=== PATIENT | male | born 1995 | race Caucasian/White ===

== ENCOUNTER 2019-04-28 14:26 | Outpatient (CLI) | payer OTHER ==
[2019-04-28 15:13] VITALS: BP 115/70
--- NOTE | 2019-04-28 15:13 | CONSULTATION NOTE ---
Information from patient questionnaire entered by Helene Rodriguez. I have reviewed and concur with the information entered by Helene Rodriguez. This document represents the service I personally performed and the decisions made by me, Doris Villela MD, [facility]. - History of Present Illness Chief Complaint: Snoring I had the pleasure of seeing MIKY PARMAR today regarding the possibility of him having a sleep disorder. His current complaints are loud snore, non- restorative sleep, and daytime sleepiness. The said he had a home sleep apnea test when he was 17 years old and was given a CPAP to use and found it beneficial. At that time he was working for a [employer] and the diagnosis was not official. The patient tells me that he normally goes to bed around 10:00 pm, and it takes him approximately 5-15 minutes to fall asleep. He has been told that he snores loudly and irregularly at night. He has not been observed to stop breathing in his sleep. His can still sleep in the same bed. He can recall waking up on the average of 4 times during the night. Most of the time he wakes up because of having to use the restroom and tossing and turning. He has never woken up from his own snore. There is a lot of tossing and turning in his sleep. Generally he can recall having dreams. There is somniloquy (sleep talking) but no somnambulism (sleep walking). He usually wakes up at 7:00- 7:30am and does not feel refreshed. He usually does not have a morning headache. During the day he complains of feeling sleepy and fatigued. He has never fallen asleep while driving nor has any accident due to sleepiness. He usually does not take naps during the day. If he naps, upon falling asleep during the day he denies having vivid dreams. He has experienced sleep paralysis. No symptoms of restless leg syndrome. He denies having impaired concentration during the day. Bernard Sleepiness Scale Score: 10 - Allergies/Home Medications Allergies and home medications reviewed: Yes - Social History The patient's occupation is a [employer]. Patient is and lives in [place]. Smoked in the past 12 months: No Alcohol use: Yes Amount and frequency: 1-2 drinks/week Caffeine use: Yes Amount and frequency: 1-2 drinks/week - Family History Family history of sleep disordered breathing: Yes Family Hx Sleep Apnea: Mother: Snoring (uncle), Grandparent: Snoring, Other: Sleep apnea - Treated - Review of Systems Cardiovascular: denies: high blood pressure, palpitations, chest pain, irregular heart rate or pulse, leg or foot swelling, have to sleep sitting up, other: Respiratory: denies: shortness of breath, wheeze, sputum production, chronic cough, other: Gastrointestinal: denies: heartburn, difficulty swallowing, nausea, vomitting, diarrhea, abdominal pain, other: Urinary: denies: incontinence, frequency, urgency, impotence, other: Neurological: denies: headaches, seizure, head trauma, disorientation, speech dysfunction, gait or balance problems, fainting or unconsciousness, other: Psychiatric: denies: Attention Deficit Hyperactivity, anxiety, depression, mood disorder, claustrophobia, other: Ear/Nose/Throat: reports: wisdom teeth removed Endocrine: denies: thyroid disease, history of goiter, sluggishness, too hot or cold, excessive thirst, increased appetite, increased urination, unexplained weakness, other: Musculoskeletal: denies: joint pain, neck pain, back pain, joint swelling, muscle pain or cramping, mobility problems, other: Immunologic: denies: sneezing, rash, itching, allergies to food or environment, other: - Physical Examination Vital signs obtained and documented by: Dr. Villela Blood Pressure: 115/70 Cuff size: long Heart Rate: 78 O2 Saturation: 98 Height: 5 ft 10 in Weight (kg): 115.747 kg Body Mass Index: 36.6 BMI Classification: Class 2 Neck circumference: 18 Mood/affect: normal HEENT: No craniofacial malformation Nostrils: patent to airflow Turbinates: normal Septum: midline Mouth and throat: narrow oropharynx Soft palate: long Hard palate: normal Uvula: normal Tongue: normal in size Tonsils: small Chin and jaw: normal size and position Neck: normal w/o lymphadenopathy or thyromegaly Heart: regular rate and rhythm Lungs: clear bilaterally Abdomen: soft Extremities: no edema or clubbing Neurologic: intact - Impression 1. Suspected Obstructive Sleep Apnea-Hypopnea Syndrome, as suggested by a history of loud and irregular snoring, frequent awakening during the night, unrefreshed sleep, and excessive daytime sleepiness. Narrow oropharynx and obesity are common predisposing factors for obstructive sleep apnea-hypopnea syndrome. I recommend proceeding to polysomnography to confirm the diagnosis and to assess severity. If the patient has significant sleep disordered breathing, a manual CPAP titration study will also be performed to find the optimal treatment pressure. I informed the patient of what the sleep studies involve and after some discussion, obtained agreement to proceed. The pathophysiology of obstructive sleep apnea-hypopnea syndrome was discussed with the patient and health risks of cardiovascular and cerebrovascular disease if not treated. - Plan Schedule polysomnography +- manual CPAP titration study. Avoid long distance driving or driving when feeling sleepy. Avoid alcohol, sedative and muscle relaxant around bedtime. Attempt to lose weight. Review instructions provided by trained office staff on how to prepare for the sleep study. Return for follow-up after sleep study completed. I spent 100% of this 15 minute visit face to face with the patient with greater than 50% of this was spent time counseling the patient and coordination of care.
== END 2019-04-28 14:27 | disposition home or self-care (01) ==
LOC: SC 14:26
PROVIDERS: ATTEND Internal Medicine Pulmonary Disease
DX: R06.83 Snoring (principal); G47.8 Other sleep disorders; G47.10 Hypersomnia, unspecified
CPT/HCPCS: 99203; 99212

== ENCOUNTER 2019-05-16 19:21 | Outpatient (CLI) | payer OTHER | END 2019-05-16 19:22 | disposition home or self-care (01) | LOC: SC 19:21 | PROVIDERS: ATTEND Internal Medicine Pulmonary Disease | DX: G47.61 Periodic limb movement disorder (principal) | CPT/HCPCS: 95810 ==

== ENCOUNTER 2019-06-11 13:03 | Outpatient (CLI) | payer OTHER ==
[2019-06-11 14:12] VITALS: BP 130/78
--- NOTE | 2019-06-11 14:12 | SLEEP CARE CONSULTATION ---
Information from patient questionnaire entered by Elyssa Rodriguez. I have reviewed and concur with the information entered by Elyssa Rodriguez. This document represents the service I personally performed and the decisions made by me, Di Trotter RN, MSN, [employer]. History of Present Illness Initial [place] Sleepiness Scale score: 10 Current [place] Sleepiness Scale score: 9 Additional HPI information: MIKY PARMAR returns for follow up of the recently performed polysomnography and informed of findings. I explained the pathophysiology behind obstructive sleep apnea. Patient does not have sleep apnea and was advised how weight gain could increase the risk of developing sleep apnea in the future. I strongly encouraged the patient to lose weight as his BMI is 36, class 2 obesity Patient has snoring and PLMs. Snoring can be reduced by weight loss. Patient states he has always snored even at lower weight No nasal congestion or difficulty breathing through his nose. Snoring can also be treated with an oral appliance from a dentist. Advised to check insurance coverage. A list of accredited dentists can be given if interested or he can check with [facility]. In addition, an ENT evaluation can be do to see if other treatment is indicated. Patient is not currently interested in oral appliance or ENT evaluation. Patient counseled not drink alcohol less than 4 hours before bedtime as it can increase snoring and apnea. Patient does not drink alcohol. Patient was cautioned about risks of drowsy driving until sleepiness symptoms resolve. Patient denies drowsy driving. [facility] patient education on snoring and sleep apnea given and reviewed. Sleep Study - Polysomnography Polysomnography findings: The quality of the study is good. The patient had slightly reduced sleep effi ciency due to a prolonged awakening in the middle of the night. The sleep architecture was normal.. Respiratory monitoring showed no significant sleep disordered breathing (AHI = 0.7) hypoxia (jayesh oxygen saturation of 93%). The patient slept adequately in supine position (supine AHI = 0.5; non-supine = 0.83). Snore was light to loud in intensity. There was mild periodic leg movement of sleep not associated with sleep fragmentation. Cardiac rhythm was normal sinus rhythm without significant arrhythmia. No abnormal behavior (parasomnia) observed during the night. Allergies and Home Medications Known drug allergies: No Home medication list reviewed: Yes (none) Review of Systems Review of systems same as previous: Yes Physical Exam Blood Pressure: 130/78 Cuff size: long Heart Rate: 68 O2 Saturation: 98 Height: 5 ft 10 in Weight (kg): 254 lb 6.4 oz Body Mass Index: 36.5 BMI Classification: Class 2 Impression and Plan 1. Snoring but no significant sleep disordered breathing. Patient advised that often weight loss will reduce snoring as well as apnea risk. An oral appliance can also be used for snoring. This would require a dental consultation. Patient cautioned not to use other online appliances as can cause bite issues. Patient is advised to check if insurance will cover. An ENT consult can also be helpful to determine if any other treatment is an option. Currently patient is not interested in oral appliance or ENT consult. Thus he is advised to lose weight to reduce snoring and apnea risk. 2. Periodic limb movement, mild, that did not fragment patients sleep. Periodic limb movement of sleep (PLMS) is characterized by episodes of repetitive limb movements that occur during sleep and usually involve the lower limbs. The e tiology is unknown but can be associated with restless leg syndrome (RLS), neuropathy, spinal cord diseases, kidney disease, rheumatological disorders, narcolepsy, obstructive sleep apnea, and REM sleep behavior disorder. Other factors that can increase PLMS and/or RLS are heredity and iron deficiency as reflected by a low serum ferritin level below 50 to 75mcg / L. Several medications can precipitate or aggravate PLMS such as selective serotonin re- uptake inhibitor antidepressants, tricyclic antidepressants, lithium, and dopamine receptor antagonists with the exception of bupropion. Caffeine can also aggravate PLMS and should be avoided. Sleep hygiene methods can also improve sleep as well as lifestyle changes such as regular exercise. Patient was advised that no treatment is needed at this time. If symptoms increase, then further evaluation is indicated. 2. Shift work disorder. Patient works 2 diffferent shifts : 7am to 4pm and 10am to 7pm. Currently on later shift and wake at 6:45 am and bedtime is 9pm. The earlier shift he wakes at 5am and bedtime 9-10m. He reports that he has not woken up refreshed since using a CPAP device when 17. Thus for now, since he does not have apnea, he is advised to work on regulating his wake time to work for both shifts to improve refreshment of sleep with rationale discussed. Use of bright light therapy in the morning might also be helpful. This can be started by just sitting in window or outside for about 15 minutes or more. A light box can also be used. He was given a log to complete to assist the process of regulation of his sleep. [facility] Shift work pamphlet and reviewed. He is to follow up as needed. I spent 100% of this 30 minute visit face to face with the patient with greater than 50% of this was spent time counseling the patient and coordination of care.
== END 2019-06-11 13:04 | disposition home or self-care (01) ==
LOC: SC 13:03
PROVIDERS: ATTEND Nurse Practitioner Family
DX: R06.83 Snoring (principal); G47.61 Periodic limb movement disorder; G47.26 Circadian rhythm sleep disorder, shift work type
CPT/HCPCS: 99212; 99214